=== PATIENT | female | born 1975 | race Caucasian/White ===

== ENCOUNTER 2016-06-25 22:46 | Emergency (ER) | payer MEDICAID ==
[2016-06-25] MEDS ORDERED: OPTIRAY 350 100 ML VIAL HMH IV ONE (22:47)
[2016-06-26] MEDS ORDERED: MORPHINE 4 MG/ML SYR ONE (01:43)
[2016-06-26] MEDS ORDERED: ONDANSETRON 4 MG VIAL ONE (01:43)
[2016-06-26] MEDS ORDERED: SODIUM CHLORIDE 0.9% 1,000 ML ONE (01:44)
== END 2016-06-26 03:57 | disposition home or self-care (01) ==
LOC: ER 22:46
DX: R10.9 Unspecified abdominal pain (principal)
CPT/HCPCS: 36415; 74177; 80053; 81001; 83690; 84703; 85025; 96374